=== PATIENT | male | born 2000 | race Two or more races ===

== ENCOUNTER 2024-06-22 11:46 | Emergency (ER) | payer MEDICAID ==
[~2024-06-22] VITALS: Ht 157.5 cm; Wt 68.2 kg
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
--- NOTE | 2024-06-22 12:54 | DVH ---
XY L RIB X RAY HISTORY: injury TECHNICAL DATA: Frontal and oblique views were obtained of the left ribs. COMPARISON: None FINDINGS: The ribs are intact throughout their length with no acute or subacute fractures demonstrated. Bone de nsity and trabeculation are normal. IMPRESSION: No acute rib fracture identified.
[2024-06-22] MEDS ORDERED: IBU600T PO (13:15)
[2024-06-22 14:14] VITALS: BP 107/74; PULSE 120; RESP 20; TEMP 98; O2SAT 94
== END 2024-06-22 14:17 | disposition home or self-care (01) ==
LOC: ER 11:46
DX: R07.89 Other chest pain (principal); R07.81 Pleurodynia; Y08.89XA Assault by other specified means, initial encounter; Y93.89 Activity, other specified; Y92.89 Other specified places as the place of occurrence of the external cause; Y99.8 Other external cause status
CPT/HCPCS: 71101

== ENCOUNTER 2025-04-06 12:01 | Emergency (ER) | payer MEDICAID ==
[~2025-04-06] VITALS: Ht 157.5 cm; Wt 59.8 kg
[~2025-04-06 12:01] MED LIST: IBU600T PO
[2025-04-06 12:14] VITALS: BP 133/76; PULSE 89; RESP 19; TEMP 98.4; O2SAT 96
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
[2025-04-15] MEDS ORDERED: CYCL-837 PO (01:19)
[2025-04-15] MEDS ORDERED: ACET500T58 PO (01:19)
== END 2025-04-06 14:03 | disposition left against medical advice (07) ==
LOC: ER 12:01
DX: R07.81 Pleurodynia (principal); F15.90 Other stimulant use, unspecified, uncomplicated; F12.90 Cannabis use, unspecified, uncomplicated; Z79.899 Other long term (current) drug therapy
CPT/HCPCS: 71101; 73030

== ENCOUNTER 2025-04-12 14:02 | Emergency (ER) | payer MEDICAID ==
[~2025-04-12] VITALS: Ht 157.5 cm; Wt 64.9 kg
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
[2025-04-12 18:33] VITALS: BP 122/76; PULSE 94; RESP 18; TEMP 97.8; O2SAT 99
[2025-04-15] MEDS ORDERED: CYCL-837 PO (01:19)
[2025-04-15] MEDS ORDERED: ACET500T58 PO (01:19)
== END 2025-04-12 18:36 | disposition home or self-care (01) ==
LOC: ER 14:02
DX: S22.31XK Fracture of one rib, right side, subsequent encounter for fracture with nonunion (principal); Z79.899 Other long term (current) drug therapy; X58.XXXD Exposure to other specified factors, subsequent encounter